=== PATIENT | male | born 1990 | race Caucasian/White ===

== ENCOUNTER 2024-08-24 15:30 | Inpatient (IN) ==
--- NOTE | 2024-08-24 16:02 | Emergency Department Note ---
Impression & Plan Acute pancreatitis, Sinus tachycardia ED Provider Note HISTORY OF PRESENT ILLNESS: Patient is a 34-year-old male presenting with abdominal pain. Patient reports that starting 48 hours ago he developed pain in his upper abdomen. He states he had a low-grade fever up to 100 Fahrenheit yesterday. He states nausea and a few episodes of vomiting. He denies any history of abdominal surgeries. He states that the pain as a crampy pressure sensation of the anterior abdomen, but also has pain radiating into his back which is sharp in etiology. Denies any dysuria or hematuria. Denies any chest pain or shortness of breath. He does report that his heart rate seems very elevated and he feels slightly lightheaded today. He states that he has had abdominal pain and tachycardic episodes like this in the past, but they normally only last a few hours and then resolve on their own. He states that he thought his symptoms would improve after going to bed last night, but he woke up today with persistent symptoms. He denies any diarrhea. ROS: as above PHYSICAL EXAM: Constitutional: Patient appears in no acute distress. HENT: Head: Normocephalic and atraumatic. Eyes: EOMI, PERRL Mouth/Throat: Mucous membranes moist. Neck: Trachea midline. Neck supple. Cardiovascular: Tachycardic with regular rhythm. No murmurs, rubs or gallops. Intact distal pulses. Pulmonary/Chest: No respiratory distress. Breath sounds clear and equal bilaterally. No wheezes or rales. No chest wall tenderness to palpation. Abdominal: Abdomen soft, no rebound or guarding. RUQ TTP. Epigastric TTP Musculoskeletal: No edema, tenderness or deformity noted. Skin: Warm and dry. No rash, erythema, pallor or cyanosis Psychiatric: Appropriate mood and affect for situation. Neurological: Alert and keenly responsive. CN II-XII grossly intact, moving all extremities equally and fully. MDM: - Vitals signs showed hypertension and tachycardia - History obtained via patient. History as above. - Chronic conditions affecting care: HTN; HLD; GERD - Differential diagnoses include, but are not limited to: Biliary colic; cholangitis; cholecystitis; hepatitis; right lower lobe pneumonia; pulmonary embolism; pyelonephritis; pancreatitis; ACS - Order placed for continuous cardiac monitoring. At this time, monitor showed rate of 127 bpm with normal sinus rhythm, per my interpretation. - External medical records reviewed. Wellness visit note dated 03/04/2024 was reviewed. Patient was seen in clinic for health maintenance examination. He was ordered refills of lisinopril and omeprazole. - EKG image interpreted by myself showed normal sinus rhythm. Rate tachycardic 112 bpm. QT 302. No acute ischemic changes. - Laboratory workup interpreted by myself showed leukocytosis (WBC 16.65) with neutrophil predominance; normal PT/INR; slight hyponatremia (Na 133); elevated total bilirubin (1.2); normal AST/ALT; normal lipase; normal troponin; hyperglycemia (glucose 277) with normal anion gap; normal procalcitonin - Patient given 1L NS with minimal improvement in his heart rate only to 116. - CT abdomen/pelvis with IV contrast acute proximal pancreatitis. Noted to have large fatty liver and splenomegaly - Given 1g IV tylenol for pain control. - Patient given a second 1L NS in ER. - Despite 2L of flui, patient's HR remained >110 bpm. Will admit to hospitalist service for further hydration and pain management. - Discussion was had with community case manager about patient's case and need for admission - Hospitalist consulted for admission - Patient admitted to [facility] hospitalist service for further evaluation and management. ASSESSMENT AND PLAN: Diagnosis: Acute pancreatitis; sinus tachycardia Plan: Admit Past Med/Surg History Problem List (Updated 08/24/24 @ 19:12 by Jia Mead MD) Sinus tachycardia (Acute) Acute pancreatitis (Acute) Dyslipidemia Hypertriglyceridemia GERD (gastroesophageal reflux disease) Hypertension Obstructive sleep apnea Surgical History (Updated 03/29/24 @ 08:56 by Annemarie Tate) No pertinent past surgical history Family History (System 03/29/24 @ 08:56 by Annemarie Tate) Uncle Colorectal cancer Grandmother (Maternal) Pancreatic cancer Grandmother (Paternal) Athyroidism (acquired) Denies family history of Ovarian cancer Prostate cancer Myocardial infarction Breast cancer Social History (System 03/29/24 @ 08:56 by Annemarie Tate) Smoking Status: Current every day smoker Tobacco Type: E-cigarettes / Vaping Age Started Using Tobacco: 25; packs per day: 1; Second Hand Exposure: Yes; Do You Dip or Chew Tobacco: No; Hx Alcohol Use: Yes Alcohol type: beer Alcohol Intake Frequency: 2-4 x/Month Hx Substance Use: No Preferred Language: Uzbek marital status: Single Current Living Situation: Family Current Living Situation Comment: lives with grandparents current occupational status: unemployed How many Children do You have: 0 Feels Safe at Home: Yes Childhood Exposure to Second-Hand Smoke: No Diet: regular Dental Care, Regularly: No Physical Activity Frequency: Does not Exercise Seatbelt Use: always Sunscreen Use: No Allergies Allergies Allergy/AdvReac Type Severity Reaction Status Date / Time No Known Drug Allergies Allergy Verified 03/29/24 08:56 [id number] Allergy Unknown Uncoded 03/29/24 08:56 N Allergy Unknown Uncoded 03/29/24 08:56 Home Meds Previous Rx's Medication Instructions Recorded omeprazole 40 mg capsule,delayed 40 mg PO DAILY #90 caps 03/04/24 release triamcinolone acetonide 0.025 % 1 applic topical BID #15 grams 03/04/24 topical ointment lisinopril 20 mg tablet 20 mg PO DAILY #90 tabs 06/04/24 fenofibrate nanocrystallized 145 145 mg PO DAILY #90 tabs 06/19/24 mg tablet Results & Data (ED) Vital Signs Vital Signs - 24 hr 08/24/24 15:35 08/24/24 15:54 08/24/24 15:54 Temperature 37.3 C Temperature Source Oral Pulse Rate 131 H 135 H Pulse Rate [Left] 130 H Pulse Rhythm Regular Pulse Rhythm [Left] Regular Pulse Strength [Left] Normal Respiratory Rate 20 21 20 Respiratory Effort / Characteristics Non-Labored Non-Labored Respiratory Depth Normal Normal Blood Pressure 162/84 H Blood Pressure [Right Arm] 148/100 H Blood Pressure Mean 110 Blood Pressure Mean [Right Arm] 116 Blood Pressure Position [Right Arm] Lying Pulse Oximetry 99 98 98 Oxygen Delivery Method Room Air Room Air Room Air Sepsis Recent Fever Within 48 Hours No Sepsis New/Unexplained Change in Mental Status No Sepsis Action Taken by Nursing No Action Required 08/24/24 16:58 08/24/24 17:38 Temperature Temperature Source Pulse Rate 116 H Pulse Rate [Left] 117 H Pulse Rhythm Pulse Rhythm [Left] Pulse Strength [Left] Respiratory Rate 18 Respiratory Effort / Characteristics Non-Labored Spontaneous Respiratory Depth Normal Blood Pressure Blood Pressure [Right Arm] 141/91 H Blood Pressure Mean Blood Pressure Mean [Right Arm] 107 Blood Pressure Position [Right Arm] Lying Pulse Oximetry 98 Oxygen Delivery Method Room Air Sepsis Recent Fever Within 48 Hours Sepsis New/Unexplained Change in Mental Status Sepsis Action Taken by Nursing Laboratory Data 08/24/24 16:12 08/24/24 16:12 Lab Results 08/24/24 Range/Units 16:12 WBC 16.65 H (4.8-10.8) K/ul RBC 4.70 (4.70-6.10) M/uL Hgb 14.3 (14.0-18.0) g/dl Hct 39.2 L (42.0-52.0) % MCV 83.4 (80.0-100.0) fL MCH 30.4 (25.0-34.0) pg MCHC 36.5 H (32.0-36.0) g/dL RDW Std Deviation 36.7 (36.4-46.3) fL RDW Coeff of Azar 12.2 (11.5-14.5) % Plt Count 204 (130-400) K/uL MPV 11.2 (9.4-12.4) fL Immature Gran % (Auto) 0.8 % Neut % (Auto) 80.8 % Lymph % (Auto) 9.4 % Blair % (Auto) 7.7 % Eos % (Auto) 0.9 % Baso % (Auto) 0.4 % Neut # (Auto) 13.45 H (1.40-6.50) K/uL Lymph # (Auto) 1.56 (1.20-3.40) K/uL Blair # (Auto) 1.28 H (0.11-0.59) K/uL Eos # (Auto) 0.15 (0.00-0.50) K/uL Baso # (Auto) 0.07 (0.00-0.20) K/uL Immature Gran # (Auto) 0.14 (0.01-0.20) K/uL Platelet Estimate Normal (Normal) RBC Morphology Unremarkable PT 10.7 (9.0-12.0) Seconds INR 1.0 (0.9-1.1) Sodium 133 L (136-145) mmol/L Potassium 3.8 (3.5-5.1) mmol/L Chloride 99 (98-107) mmol/L Carbon Dioxide 25 (21-32) mmol/L Anion Gap 9 (3-11) BUN 9 (6-23) mg/dl Creatinine 0.93 (0.6-1.4) mg/dl Est Cr Clr Drug Dosing 167.4 ml/min eGFR 110.50 BUN/Creatinine Ratio 9.7 L (10-20) Glucose 277 H (70-99(Fasting)) mg/dl Lactate 1.9 (0.4-2.0) mmol/L Calcium 9.4 (8.6-10.3) mg/dl Total Bilirubin 1.2 H (0.2-1.0) mg/dl AST 19 (13-39) U/L ALT 52 (7-52) U/L Alkaline Phosphatase 50 (34-104) U/L Troponin I High Sens 5.9 (0-20) pg/ml Total Protein 7.7 (6.0-8.3) gm/dl Albumin 4.6 (3.4-5.0) gm/dl Globulin 3.1 (2.5-4.0) gm/dl Albumin/Globulin Ratio 1.5 (0.9-2) Lipase 61 (11-82) U/L Procalcitonin 0.12 (0-0.5) ng/ml Administered Medications Discontinued Medications Sodium Chloride (Nss) 1,000 mls @ 999 mls/hr IV .Q1H1M ONE Stop: 08/24/24 16:38 Last Infusion: 08/24/24 17:46 Dose: Infused Documented By: Admin: 08/24/24 16:34 Dose: 999 mls/hr Documented By: ANTONY Sodium Chloride (Nss) 1,000 mls @ 999 mls/hr IV .Q1H1M ONE Stop: 08/24/24 18:28 Last Admin: 08/24/24 18:35 Dose: 999 mls/hr Documented By: ANTONY Acetaminophen (Ofirmev) 1,000 mg in 100 mls @ 400 mls/hr IV NOW STA Stop: 08/24/24 17:54 Last Infusion: 08/24/24 18:32 Dose: Infused Documented By: Admin: 08/24/24 18:02 Dose: 400 mls/hr Documented By: ANTONY Ioversol (Optiray 320 125ml) 118 ml IV ONCE ONE Stop: 08/24/24 17:30 Last Admin: 08/24/24 17:29 Dose: 118 ml Documented By: GES Imaging Data Radiologist's Impression: Abdomen/Pelvis CT 08/24/24 15:38 EXAM: CT Abdomen and Pelvis With Intravenous Contrast INDICATION: Abdominal pain TECHNIQUE: Axial computed tomography images of the abdomen and pelvis with intravenous contrast. Sagittal and coronal reformatted images were created and reviewed. This CT exam was performed using one or more of the following dose reduction techniques: automated exposure control, adjustment of the mA and/or kV according to patient size, and/or use of iterative reconstruction technique. CONTRAST: 118ml of Optiray 320 was administered intravenously. COMPARISON: No relevant prior studies available. FINDINGS: Limitations: None. Lung bases: No abnormality noted. Pleural space: No visualized pleural effusion or pneumothorax. Heart: No abnormality noted. Mediastinum: No abnormality noted. ABDOMEN: Liver: The liver is enlarged measuring 31.0 cm long. Hypodensity noted typical of fatty replacement. Smooth cortical contour. No mass or ductal dilation. Gallbladder and bile ducts: The gallbladder is collapsed. No calcified stones noted. Pancreas: There is mild to moderate inflammation of the proximal pancreas. There is homogeneous pancreatic enhancement. No ductal dilatation. No surrounding fluid or gas. Spleen: The spleen is enlarged to 17.5 cm long. Adrenals: No significant abnormality noted. Kidneys and ureters: 2 mm nonobstructing right kidney stone. The kidneys otherwise appear normal. Stomach and bowel: No distension or mucosal thickening. No inflammation noted. PELVIS: Appendix: No findings to suggest acute appendicitis. Bladder: No filling defects to suggest mass or large stone. No inflammation. Reproductive: No abnormalities noted. ABDOMEN and PELVIS: Intraperitoneal space: No free air. No significant fluid collection. Bones/joints: No acute changes. Soft tissues: No significant abnormality noted. Vasculature: No abdominal aortic aneurysm. Lymph nodes: No pathologically enlarged lymph nodes. IMPRESSION: 1. Acute proximal pancreatitis. 2. 2 mm nonobstructing right kidney stone. 3. Large fatty liver and splenomegaly. ACT 112: Positive. There are findings on this exam that require communication between the performing entity and the patient following Patient Test Result Information Act ([place] ACT 112) guidelines. Electronically signed by Itzel Joel 08-24-2024 7:02 PM Discharge Plan Visit Data Chief Complaint: Abdominal Pain Stated Complaint: ABD PAIN,FEVER,HTN,TACHYCARDI ED Provider: Jia Mead Discharge Problem: Acute pancreatitis, Sinus tachycardia Forms Stand Alone Forms: [employer] [facility] Prescriptions Prescriptions: No Action lisinopril 20 mg tablet 20 mg PO DAILY Qty: 90 3RF fenofibrate nanocrystallized 145 mg tablet 145 mg PO DAILY Qty: 90 3RF omeprazole 40 mg capsule,delayed release(DR/EC) 40 mg PO DAILY Qty: 90 3RF triamcinolone acetonide 0.025 % ointment 1 applic topical BID Qty: 15 1RF Referrals Referrals: Hernan De La Cruz DO [Primary Care Provider] -
[2024-08-24] MEDS: SODIUM CHLORIDE 0.9% 1,000 ML IV ONE ×2 (16:34→18:35)
[2024-08-24 17:10] LABS: Alanine Aminotransferase 52 U/L (7-52); Albumin Globulin Ratio 1.5 (0.9-2); Albumin Level 4.6 gm/dl (3.4-5.0); Alkaline Phosphatase 50 U/L (34-104); Anion Gap 9 (3-11); Aspartate Aminotransferase 19 U/L (13-39); BUN Creatinine Ratio 9.7 (10-20); Bilirubin,Total 1.2 mg/dl (0.2-1.0); Blood Urea Nitrogen 9 mg/dl (6-23); Calcium 9.4 mg/dl (8.6-10.3); Carbon Dioxide 25 mmol/L (21-32); Chloride 99 mmol/L (98-107); Creatinine Clr Calc Pharmacy 167.4 ml/min; Globulin 3.1 gm/dl (2.5-4.0); Glucose 277 mg/dl (70-99(Fasting)); Lipase 61 U/L (11-82); Potassium 3.8 mmol/L (3.5-5.1); Sodium 133 mmol/L (136-145); Total Protein 7.7 gm/dl (6.0-8.3)
[2024-08-24 17:17] LABS: Prothrombin Time 10.7 Seconds (9.0-12.0); Troponin I High Sensitivity 5.9 pg/ml (0-20)
[2024-08-24 17:22] LABS: Basophils # (auto) 0.07 K/uL (0.00-0.20); Basophils % (auto) 0.4 %; Eosinophils # (auto) 0.15 K/uL (0.00-0.50); Eosinophils % (auto) 0.9 %; Hematocrit (blood only) 39.2 % (42.0-52.0); Hemoglobin 14.3 g/dl (14.0-18.0); Immature Granulocytes # (auto) 0.14 K/uL (0.01-0.20); Immature Granulocytes % (auto) 0.8 %; Lymphocytes # (auto) 1.56 K/uL (1.20-3.40); Lymphocytes % (auto) 9.4 %; Mean Corpuscular Hemoglobin 30.4 pg (25.0-34.0); Mean Corpuscular Hgb Conc 36.5 g/dL (32.0-36.0); Mean Corpuscular Volume 83.4 fL (80.0-100.0); Mean Platelet Volume 11.2 fL (9.4-12.4); Monocytes # (auto) 1.28 K/uL (0.11-0.59); Monocytes % (auto) 7.7 %; Neutrophils # (auto) 13.45 K/uL (1.40-6.50); Neutrophils % (auto) 80.8 %; Platelet Count 204 K/uL (130-400); Platelet Estimate Normal (Normal); RBC Morphology Unremarkable; RDW Coefficient of Variation 12.2 % (11.5-14.5); RDW Standard Deviation 36.7 fL (36.4-46.3); White Blood Count 16.65 K/ul (4.8-10.8)
[2024-08-24] MEDS: OPTIRAY 320 125ml IV ONE (17:29)
[2024-08-24] MEDS: ACETAMINOPHEN 1,000 MG/100 ML VIAL IV STA (18:02)
--- NOTE | 2024-08-24 19:03 | CT Scan Report ---
EXAM: CT Abdomen and Pelvis With Intravenous Contrast INDICATION: Abdominal pain TECHNIQUE: Axial computed tomography images of the abdomen and pelvis with intravenous contrast. Sagittal and coronal reformatted images were created and reviewed. This CT exam was performed using one or more of the following dose reduction techniques: automated exposure control, adjustment of the mA and/or kV according to patient size, and/or use of iterative reconstruction technique. CONTRAST: 118ml of Optiray 320 was administered intravenously. COMPARISON: No relevant prior studies available. FINDINGS: Limitations: None. Lung bases: No abnormality noted. Pleural space: No visualized pleural effusion or pneumothorax. Heart: No abnormality noted. Mediastinum: No abnormality noted. ABDOMEN: Liver: The liver is enlarged measuring 31.0 cm long. Hypodensity noted typical of fatty replacement. Smooth cortical contour. No mass or ductal dilation. Gallbladder and bile ducts: The gallbladder is collapsed. No calcified stones noted. Pancreas: There is mild to moderate inflammation of the proximal pancreas. There is homogeneous pancreatic enhancement. No ductal dilatation. No surrounding fluid or gas. Spleen: The spleen is enlarged to 17.5 cm long. Adrenals: No significant abnormality noted. Kidneys and ureters: 2 mm nonobstructing right kidney stone. The kidneys otherwise appear normal. Stomach and bowel: No distension or mucosal thickening. No inflammation noted. PELVIS: Appendix: No findings to suggest acute appendicitis. Bladder: No filling defects to suggest mass or large stone. No inflammation. Reproductive: No abnormalities noted. ABDOMEN and PELVIS: Intraperitoneal space: No free air. No significant fluid collection. Bones/joints: No acute changes. Soft tissues: No significant abnormality noted. Vasculature: No abdominal aortic aneurysm. Lymph nodes: No pathologically enlarged lymph nodes. IMPRESSION: 1. Acute proximal pancreatitis. 2. 2 mm nonobstructing right kidney stone. 3. Large fatty liver and splenomegaly. ACT 112: Positive. There are findings on this exam that require communication between the performing entity and the patient following Patient Test Result Information Act ([place] ACT 112) guidelines. Electronically signed by Itzel Joel 08-24-2024 7:02 PM
--- NOTE | 2024-08-24 19:51 | History & Physical Report ---
Date of Service August 24, 2024 Assessment & Plan (1) Acute pancreatitis: (2) Alcohol abuse: (3) GERD (gastroesophageal reflux disease): (4) Hypertension: (5) Obstructive sleep apnea: (6) Dyslipidemia: Plan This is a 34 y/o M with PMHx of SANJAY (on CPAP), SANJAY, HTN, HLD, Prediabetes, and alcohol abuse who was admitted due to acute pancreatitis. Acute pancreatitis - Epigastric pain with radiation to back exacerbated by meals; has not had PO intake in 2 days due to this - Likely alcohol induced - Will check triglyceride level as well - NPO but as soon as patient is able to tolerate PO, can switch to oral diet - Pain control with scheduled tylenol and dilaudid 0.25 mg IV for moderate pain and dilaudid 0.5 mg IV for severe pain - LR @ 125 ml/hr ordered Alcohol abuse - States he drinks "a couple times" during the week, and alternates between a 6- pack of beer or half a bottle or a whole bottle of vodka - Last drink was 4 days ago; denies hx of withdrawal - Feels he needs to decrease her EtOH intake, especially given current presentation - AWSS protocol ordered - Discussed importance of decreasing alcohol intake Prediabetes - Hgb A1c from 06/2024 was 6.3% - Bsg at time of admission was 277 - Not currently on home medications - Bsg checks achs and SSI HTN - Hold home Lisinopril for now SANJAY - Continue CPAP HLD - Continue home Fenofibrate GERD - Continue PPI Dispo: PCU/Tele Fluids: LR @200 ml/hr Diet: NPO; will resume diet as soon as patient is able to tolerate PO Pain Control: Tylenol q8 IV (can switch to PO if able to tolerate), Dilaudid 0.25 mg for moderate pain (4-6) and Dilaudid 0.5 mg for severe pain (7-10) VTE ppx: Lovenox GI ppx: Pantoprazole Code Status: FULL History of Present Illness Chief Complaint: Abdominal Pain Primary Care Provider: Hernan De La Cruz, Patient is a 34-year-old male with past medical history of hypertension, GERD, hyperlipidemia, SANJAY (on CPAP), prediabetes, and alcohol abuse who comes to the emergency department due to 2 days of persistent abdominal pain. Patient describes pain as intense burning in his epigastric region with radiation to his back, exacerbated by meals, persistent/constant. Associated symptoms include nausea, and states that he had a fever at home (Tmax of 101) and 1 episode of night sweats. Denies having any other associated symptoms such as chest pain, shortness of breath, dyspnea on exertion, palpitations, tachycardia, diarrhea or vomiting, weakness, lightheadedness/dizziness, or any other systemic symptoms. When pain began 2 days ago, since patient noticed that this was exacerbated by oral intake, he has had little to eat if anything and these last 2 days. He has not had a previous episode of pancreatitis, however, he states that he has been having intermittent abdominal pain for a few weeks that resolved spontaneously, but he grew concerned when his abdominal pain that began 2 days ago was not resolving like in previous times. Patient states that he consumes alcoholic beverages " a few times a week" and that he alternates between a sixpack of beer and half or a whole bottle of vodka. The last drink he had was 4 days ago and he denies having any history of withdrawal, but knows that he needs to decrease his intake. He lives in [place] with his grandmother. Labs/Imaging: Leukocytosis of 16 with neutrophilic predominance, hemoglobin of 14.3, platelets of 204. Lactate of 1.9. CMP with mild hyponatremia of 133, creatinine of 0.93 and BUN of 9, blood sugar of 277 (hemoglobin A1c from 06/2024 was 6.3). LFTs unremarkable. Lipase of 61. Pro-Liborio of 0.12. CTAP showing hepatomegaly (length of 31 cm) with changes consistent with fatty liver, splenomegaly (length of 17.5 cm), and changes consistent with acute proximal pancreatitis; no gallstones or biliary duct dilation noted. Medical History: [Reviewed] Medications: [Reviewed] Surgical History: [Reviewed] Family history: [Reviewed] Allergies: [Reviewed] Social History: [Reviewed] Code Status: FULL Allergies Allergy/AdvReac Type Severity Reaction Status Date / Time No Known Allergies Allergy Verified 08/24/24 21:20 Home Medications Medication Instructions Recorded Confirmed Type omeprazole 40 mg capsule,delayed 40 mg PO DAILY #90 caps 03/04/24 08/24/24 Rx release triamcinolone acetonide 0.025 % 1 applic topical BID #15 grams 03/04/24 08/24/24 Rx topical ointment lisinopril 20 mg tablet 20 mg PO DAILY #90 tabs 06/04/24 08/24/24 Rx fenofibrate nanocrystallized 145 145 mg PO DAILY #90 tabs 06/19/24 08/24/24 Rx mg tablet Past Med/Surg History Problem List (Updated 08/24/24 @ 19:12 by Jia Mead MD) Alcohol abuse Sinus tachycardia (Acute) Acute pancreatitis (Acute) Dyslipidemia Hypertriglyceridemia GERD (gastroesophageal reflux disease) Hypertension Obstructive sleep apnea Surgical History (Updated 03/29/24 @ 08:56 by Annemarie Tate) No pertinent past surgical history Family History (System 03/29/24 @ 08:56 by Annemarie Tate) Uncle Colorectal cancer Grandmother (Maternal) Pancreatic cancer Grandmother (Paternal) Athyroidism (acquired) Denies family history of Ovarian cancer Prostate cancer Myocardial infarction Breast cancer Social History (System 03/29/24 @ 08:56 by Annemarie Tate) Smoking Status: Current every day smoker Tobacco Type: E-cigarettes / Vaping Age Started Using Tobacco: 25; packs per day: 1; Second Hand Exposure: Yes; Do You Dip or Chew Tobacco: No; Hx Alcohol Use: Yes Alcohol type: beer and hard liquor Alcohol Intake Frequency: 2-4 x/Month Hx Substance Use: No Preferred Language: Solomon Islander Communication Ability: Effective Welder Required: No Beliefs That Will Affect Care: None marital status: Single Current Living Situation: Family Current Living Situation Comment: lives with grandparents current occupational status: unemployed How many Children do You have: 0 Feels Safe at Home: Yes Safety Concerns: Feels Safe At This Time Childhood Exposure to Second-Hand Smoke: No Diet: regular Dental Care, Regularly: No Physical Activity Frequency: Does not Exercise Seatbelt Use: always Sunscreen Use: No Assistive Devices: Contacts and CPAP Review of Systems Review of Systems: As per HPI Physical Exam Physical Exam: GENERAL: AAO x4, afebrile, calm, NAD HEAD: AT, NC EYES: EOM intact, TALON CHEST: symmetric chest expansions w/ respirations CARDIO: RRR, no r/m/g PULMONARY: CTA b/l, normal respiratory effort, no respiratory distress GI: soft, nondistended, mild-moderate tenderness with palpation of RUQ and epigastric region EXTREMITIES: no swelling or calf tenderness in b/l LE Results & Data Results & Data Vital Signs (Past 12 Hours) Vital Signs Temp Pulse Pulse Resp BP BP Pulse Ox 08/24/24 17:38 117 H 18 141/91 H 98 08/24/24 16:58 116 H 08/24/24 15:54 135 H 20 98 08/24/24 15:54 130 H 21 148/100 H 98 08/24/24 15:35 37.3 C 131 H 20 162/84 H 99 O2 Del Method 08/24/24 17:38 Room Air 08/24/24 16:58 08/24/24 15:54 Room Air 08/24/24 15:54 Room Air 08/24/24 15:35 Room Air Supervising Physician Co-Signing Physician Notes Patient seen and examined, chart reviewed, case discussed with Dr. Carmen. In brief, patient is a 34-year-old male with history of GERD, hypertension, obstructive sleep apnea, hypertriglyceridemia and alcohol abuse presenting with 2 days of severe epigastric discomfort with radiation to his back. Decreased oral intake. Patient found to have acute pancreatitis. No history of prior pancreatitis. No history of gallstones. Patient does endorse drinking alcohol fairly regularly1-2 times per week. On each occasion he drinks approximately 1 sixpack of beer or 1/5 of vodka. Patient with history of hypertriglyceridemia for which he takes Fenofibrate 145mg po daily On physical exam patient is resting comfortably, in moderate pain in the epigastric area with radiation through to the back Persistently tachycardic, sinus, heart rate = 122 Moist mucous membranes, neck supple + S1, S2, regular, no murmur/rub/gallops Lungs CTA anteriorly Positive bowel sounds, soft, epigastric tenderness with some voluntary guarding Labs and images reviewed. Patient with leukocytosis WBC = 16.65 with neutrophil predominance Glucose = 277 Total bilirubin = 1.2 Triglycerides = 1149 CT of the abdomen with acute proximal pancreatitis as well as a 2 mm nonobstructing right kidney stone. Assessment/[id number] male with history of GERD, hypertension, obstructive sleep apnea, hypertriglyceridemia and alcohol abuse presenting with acute pancreatitis. No history of prior. No gallstones. Elevated triglyceride level = 1149. #Hypertriglyceridemia induced acute pancreatitis Admit to PCU Initiate insulin drip per hypertriglyceridemia protocol - Monitor BSG levels q hourly). - lactated Ringer's at 200 mL/h when blood sugar = 150-200 will change fluids to dextrose containing at rate of 200/h Monitor triglyceride level every 12 hours Continue insulin drip until triglyceride level less than 500 ideally -Continue home Fenofibrate -Pain control, anti-emetics as needed -Will hold home Lisinopril for now #GERD -Protonix #EtOH use -AWSS protocol with Ativan as needed -Patient would benefit from EtOH cessation. With fatty liver present on imaging #SANJAY -CPAP qHS Remainder as above Resident Activity Tracking Resident Involvement: Resident Care Provided Care Provided: Adult Hospital Medicine
[2024-08-24 20:05] LABS: Appearance Urine Clear (Clear); Bacteria Urine Automated None Seen (None Seen); Bilirubin Urine Negative (Negative); Blood Urine Negative (Negative); Cast Urine Automated 0-2 /lpf (0-2); Color Urine Yellow; Epithelial Cell Urine Auto 0-2 /hpf (0-2); Glucose Urine UA 3+ (Negative); Ketones Urine Trace (Negative); Leukocyte Esterase Urine Negative (Negative); Nitrite Urine Negative (Negative); Protein Urine 2+ (Negative); RBC Urine Automated 0-2 /hpf (0-2); Specific Gravity Urine > 1.045 (1.000-1.030); Urobilinogen Urine Negative (Negative); WBC Urine Automated 0-5 /hpf (0-5)
[2024-08-24] MEDS ORDERED: Ativan IV Alcohol Withdrawal--Active Protocol IV PRN (21:08)
[2024-08-24] MEDS ORDERED: DEXTROSE 50% 50 ML SYRINGE IV PRN ×2 (21:08→22:45)
[2024-08-24] MEDS ORDERED: LORazepam 2 MG/1 ML VIAL IV PRN ×3 (21:08)
[2024-08-24] MEDS ORDERED: CARBOHYDRATES FOR HYPOGLYCEMIA PO PRN (21:08)
[2024-08-24] MEDS ORDERED: GLUCOSE 40% GEL 15 GM TUBE PO PRN (21:08)
[2024-08-24] MEDS ORDERED: POLYETHYLENE (MIRALAX) 17 GM PACK PO PRN (21:08)
[2024-08-24] MEDS ORDERED: GLUCOSE 10 TAB/TUBE PO PRN (21:08)
[2024-08-24] MEDS ORDERED: MELATONIN 3 MG TAB PO PRN (21:08)
[2024-08-24] MEDS ORDERED: HYDROmorphone INJ 0.5 MG/0.5 ML SYR IV PRN (21:08)
[2024-08-24] MEDS ORDERED: GLUCAGON FOR INJ 1 MG VIAL SQ PRN (21:08)
[2024-08-24] MEDS: SODIUM CHLORIDE 0.9% 1,000 ML IV SCH (21:10)
[2024-08-24 21:22] LABS: Chol HDL Ratio 7.7 (0-5); Cholesterol 215 mg/dl (0-200); HDL Cholesterol 28 mg/dl; Triglycerides 1149 mg/dl (0-150)
[2024-08-24] MEDS: INSULIN ASPART PER UNIT CHARGE SC SCH (21:33)
[2024-08-24] MEDS: LACTATED RINGER'S 1,000 ML IV SCH (21:33)
[2024-08-24] MEDS: HYDROmorphone INJ 0.5 MG/0.5 ML SYR IV PRN (21:44)
[2024-08-24] MEDS: ONDANSETRON INJ 2 MG/ML 2 ML VIAL IV PRN (21:45)
[2024-08-24] MEDS ORDERED: INSULIN PROTOCOL GOAL RANGE ONE (22:23)
[2024-08-24] MEDS ORDERED: STAT IV Infusion **Titration per Protocol STA (22:23)
[2024-08-24] MEDS ORDERED: INSULIN REGULAR 250 UNITS in SODIUM CHLORIDE 0.9% 247.5 ML IV SCH (22:30)
--- NOTE | 2024-08-24 22:47 | Billing Data ---
Date of Service August 24, 2024 Coding Level of Care Code 37114 INT INP/OBS CARE
[2024-08-24 22:57] LABS: Influenza A virus by PCR Negative (Neg); Influenza B virus by PCR Negative (Neg); RSV by PCR Negative (Neg); SARS CoV2 RNA(COVID-19) Ceph NEGATIVE (Negative)
[2024-08-24] MEDS: POTASSIUM CHLORIDE 10 MEQ TABCR PO STA (23:06)
[2024-08-24] MEDS: INSULIN REGULAR 250 UNITS in SODIUM CHLORIDE 0.9% 247.5 ML IV SCH (23:25)
[2024-08-24] MEDS: KETOROLAC TROMETHAMINE 15 MG/ML VIAL IV ONE (23:33)
[2024-08-24] MEDS: D5W AND 1/2NSS 1,000 ML IV SCH (23:33)
[2024-08-25] MEDS: ACETAMINOPHEN 1,000 MG/100 ML VIAL IV SCH (01:45)
[2024-08-25] MEDS: SODI CHLOR 2.5MEQ/ML 14.6% 77 MEQ in DEXTROSE 10% 1,000 ML IV SCH (05:53)
[2024-08-25 06:25] LABS: Albumin Globulin Ratio 1.2 (0.9-2); Albumin Level 3.6 gm/dl (3.4-5.0); BUN Creatinine Ratio 10.2 (10-20); Bilirubin,Total 0.9 mg/dl (0.2-1.0); Calcium 8.7 mg/dl (8.6-10.3); Creatinine Clr Calc Pharmacy 145.5 ml/min; Globulin 2.9 gm/dl (2.5-4.0); Potassium 3.8 mmol/L (3.5-5.1); Total Protein 6.5 gm/dl (6.0-8.3)
[2024-08-25 06:33] LABS: Basophils # (auto) 0.05 K/uL (0.00-0.20); Basophils % (auto) 0.5 %; Eosinophils # (auto) 0.21 K/uL (0.00-0.50); Hemoglobin 11.7 g/dl (14.0-18.0); Immature Granulocytes # (auto) 0.07 K/uL (0.01-0.20); Immature Granulocytes % (auto) 0.7 %; Lymphocytes % (auto) 19.4 %; Mean Corpuscular Hemoglobin 30.3 pg (25.0-34.0); Mean Corpuscular Hgb Conc 34.4 g/dL (32.0-36.0); Mean Corpuscular Volume 88.1 fL (80.0-100.0); Mean Platelet Volume 11.2 fL (9.4-12.4); Monocytes # (auto) 0.84 K/uL (0.11-0.59); Monocytes % (auto) 8.1 %; Neutrophils # (auto) 7.16 K/uL (1.40-6.50); Neutrophils % (auto) 69.3 %; Platelet Count 161 K/uL (130-400); RDW Coefficient of Variation 12.7 % (11.5-14.5); RDW Standard Deviation 40.1 fL (36.4-46.3); Red Blood Count 3.86 M/uL (4.70-6.10); White Blood Count 10.33 K/ul (4.8-10.8)
[2024-08-25] MEDS ORDERED: INSULIN ASPART PER UNIT CHARGE SC SCH (07:30)
--- NOTE | 2024-08-25 07:32 | Hospitalist Progress Note ---
Date of Service August 25, 2024 Assessment & Plan (1) Acute pancreatitis: (2) Alcohol abuse: (3) GERD (gastroesophageal reflux disease): (4) Hypertension: (5) Obstructive sleep apnea: (6) Dyslipidemia: Plan This is a 34 y/o M with PMHx of SANJAY (on CPAP), SANJAY, HTN, HLD, Prediabetes, and alcohol abuse who was admitted due to acute pancreatitis. Acute pancreatitis - combination of alcohol and hypertriglyceridemia - Epigastric pain with radiation to back exacerbated by meals; has not had PO intake in 2 days due to this - cont insulin gtt per hypertriglyceridemia protocol (cont until TG < 500), 1149 on admission, currently trending down, currently: 719 - monitor BG hourly - cont D5 05/16 NS - started on clears today - cont home fenofibrate - Pain control with scheduled tylenol and dilaudid 0.25 mg IV for moderate pain and dilaudid 0.5 mg IV for severe pain Alcohol use disorder - States he drinks "a couple times" during the week, and alternates between a 6- pack of beer or half a bottle or a whole bottle of vodka - Last drink was 4 days ago; denies hx of withdrawal - Feels he needs to decrease her EtOH intake, especially given current presentation - AWSS protocol ordered - Discussed importance of decreasing alcohol intake Prediabetes - Hgb A1c from 06/2024 was 6.3% - Bsg at time of admission was 277 - Not currently on home medications - BG currently being monitored hourly as pt is on insulin gtt HTN - Hold home Lisinopril for now SANJAY - Continue CPAP HLD - Continue home Fenofibrate GERD - Continue PPI VTE ppx: Lovenox GI ppx: Pantoprazole Code Status: FULL Admission and Anticipated Discharge Date Admission Date: August 24, 2024 Subjective no acute events overnight Currently states he is feeling much better and his abdominal pain has resolved Review of Systems Review of Systems: Comprehensive ROS neg Physical Exam Physical Exam: Gen: NAD, in bed comfortable HEENT: NC/AT, anicteric, MMM CVS: s1s2nl, RRR Lungs: CTAB Abd: soft, NT, nl bowels sounds : no sanabria Ext: no edema Neuro: AAOx4 Psych: calm/cooperative Results & Data Results & Data Vital Signs (Past 12 Hours) Vital Signs Temp Pulse Pulse Resp BP BP Pulse Ox 08/25/24 07:20 94 H 08/25/24 03:03 36.8 C 96 H 18 133/79 98 08/25/24 00:29 08/24/24 21:45 112 H 08/24/24 21:08 116 H 08/24/24 21:00 37.1 C 122 H 20 153/89 H 98 08/24/24 20:34 152/101 H 08/24/24 20:34 152/101 H 08/24/24 20:34 152/101 H 08/24/24 20:21 111 H 22 97 08/24/24 20:00 108 H 21 08/24/24 20:00 134/83 08/24/24 19:30 105 H 18 139/87 99 O2 Del Method 08/25/24 07:20 08/25/24 03:03 Room Air 08/25/24 00:29 Room Air 08/24/24 21:45 08/24/24 21:08 08/24/24 21:00 Room Air 08/24/24 20:34 08/24/24 20:34 08/24/24 20:34 08/24/24 20:21 08/24/24 20:00 08/24/24 20:00 08/24/24 19:30 Room Air PG Care Time/CCT Total # of Minutes Spent Total Time Spent with Patient: Total time spent is greater than 50% in coordination of care (as documented) at patient's floor/unit and/or counseling patient: Coding Level of Care Code 14213 SUB INP/OBS CARE 2/35MIN Diagnoses Acute pancreatitis K85.90 Alcohol abuse F10.10 GERD (gastroesophageal reflux disease) K21.9 Hypertension I10 Obstructive sleep apnea G47.33 Dyslipidemia E78.5
[2024-08-25] MEDS: ENOXAPARIN INJ 40 MG/0.4 ML SYR SQ SCH (08:02)
[2024-08-25] MEDS: FENOFIBRATE NANOCRYSTALLIZED 145 MG TABLET PO SCH (08:03)
[2024-08-25] MEDS: THIAMINE HCL 100 MG TAB PO SCH (08:04)
[2024-08-25] MEDS: PANTOprazole 40 MG TAB PO SCH (08:04)
[2024-08-25] MEDS: FOLIC ACID 1 MG TAB PO SCH (08:04)
[2024-08-25] MEDS ORDERED: FENOFIBRATE NANOCRYSTALLIZED 145 MG TABLET PO SCH (09:00)
[2024-08-25] MEDS ORDERED: lisinopril 20 MG TAB PO SCH (09:00)
--- NOTE | 2024-08-25 09:31 | Electrocardiogram Report ---
Test Reason : Blood Pressure : */* mmHG Vent. Rate : 122 BPM Atrial Rate : 122 BPM P-R Int : 138 ms QRS Dur : 94 ms QT Int : 306 ms P-R-T Axes : 53 61 19 degrees QTcB Int : 436 ms Sinus tachycardia T wave abnormality, consider inferior ischemia Abnormal ECG No previous ECGs available Confirmed by Buck William ([id number]) on 08/25/2024 9:31:37 AM Referred By: REFERRED SELF Confirmed By: Buck William
[2024-08-25] MEDS: POTASSIUM CHLORIDE CRTAB 20 MEQ TABCR PO SCH (20:43)
[2024-08-26] MEDS ORDERED: ACETAMINOPHEN 500 MG TAB PO PRN (00:09)
[2024-08-26] MEDS: ACETAMINOPHEN 500 MG TAB PO SCH (00:29)
[2024-08-26 06:39] LABS: Basophils # (auto) 0.04 K/uL (0.00-0.20); Basophils % (auto) 0.5 %; Hematocrit (blood only) 33.4 % (42.0-52.0); Hemoglobin 11.1 g/dl (14.0-18.0); Immature Granulocytes # (auto) 0.05 K/uL (0.01-0.20); Immature Granulocytes % (auto) 0.7 %; Lymphocytes # (auto) 2.18 K/uL (1.20-3.40); Lymphocytes % (auto) 29.4 %; Mean Corpuscular Hemoglobin 29.6 pg (25.0-34.0); Mean Corpuscular Hgb Conc 33.2 g/dL (32.0-36.0); Mean Corpuscular Volume 89.1 fL (80.0-100.0); Mean Platelet Volume 11.3 fL (9.4-12.4); Monocytes # (auto) 0.56 K/uL (0.11-0.59); Monocytes % (auto) 7.5 %; Neutrophils # (auto) 4.29 K/uL (1.40-6.50); Neutrophils % (auto) 57.9 %; Platelet Count 168 K/uL (130-400); RDW Coefficient of Variation 12.4 % (11.5-14.5); RDW Standard Deviation 40.5 fL (36.4-46.3); Red Blood Count 3.75 M/uL (4.70-6.10); White Blood Count 7.42 K/ul (4.8-10.8)
--- NOTE | 2024-08-26 06:49 | Hospitalist Progress Note ---
Date of Service August 26, 2024 Assessment & Plan (1) Acute pancreatitis: (2) Alcohol abuse: (3) GERD (gastroesophageal reflux disease): (4) Hypertension: (5) Obstructive sleep apnea: (6) Dyslipidemia: Plan This is a 34 y/o M with PMHx of SANJAY (on CPAP), HTN, HLD, Prediabetes, and alcohol abuse who was admitted due to acute pancreatitis. #Acute pancreatitis - Etiology: Likely combination of alcohol and hypertriglyceridemia - Presented with Epigastric pain with radiation to back exacerbated by meals - Vitals: Stable - Labs : Lipase (08/23): 61 AST 27 ALT 36 ALK phosphatase 36 Total Bili:0.5 - Ct Abdomen and Pelvis reveals acute proximal pancreatitis; 2mm nonobstructing right kidney stone, large fatty liver and splenomegaly. Plan - cont insulin gtt per hypertriglyceridemia protocol (cont until TG < 500), 1149 on admission, currently trending down, Today: 644; will repeat TG at 4PM Today. If Triglyceride <500, will stop insulin drip and hopefully home tomorrow. - monitor BG hourly - cont D5 05/16 NS - started on clears yesterday. Continue clear diet - cont home fenofibrate dose of 145 mg daily. Can consider adding Gemfibrozil in the outpatient. - Pain control with scheduled Tylenol 1000mg Po q8hr #Alcohol use disorder - States he drinks "a couple times" during the week, and alternates between a 6- pack of beer or half a bottle or a whole bottle of vodka - Last drink was 4 days ago before coming to hospital - Denies hx of withdrawal -Vitals stable -Electrolytes WNL - Feels he needs to decrease her EtOH intake, especially given current presen tation Plan - IVF, Folate , Thiamine - AWSS protocol ordered - Discussed importance of decreasing alcohol intake #Prediabetes - Hgb A1c from 06/2024 was 6.3% - Bsg at time of admission was 277 - BG currently being monitored hourly as pt is on insulin gtt #HTN - Hold home Lisinopril for now. Will resume on discharge - BP: 127/89 #SANJAY - Continue CPAP #HLD - Continue home Fenofibrate, Can consider adding Gemfibrozil in the outpatient. GERD - Continue PPI VTE ppx: Lovenox GI ppx: Pantoprazole Code Status: FULL Admission and Anticipated Discharge Date Admission Date: August 24, 2024 Supervising Physician Co-Signing Physician Notes Attending attestation Pt seen and examined in concert with Dr. Alcaraz. In agreement with the documented findings as noted in the resident documentation with any exceptions or additions as noted here. Significant improvement in presenting epigastric pain for the last several hours. Reports ongoing preadmission dietary indiscretion including high amt of fast food, 'too much' alcohol use. Just got a new job and sick cat, so increased stress. Grandmother, who he lives with reports significant FHx of pancreatic disease and hypertriglyceridemia. Pressuring patient to leave AMA due to cost. On examination, S1/S2 nl RRR no MCG. CTAB. Abd NT/ND BS+ve Acute pancreatitis in the setting of hypertrilgyceridemia - extensive discussion with patient and grandmother re: goals of care and duration of stay. As symptoms have considerably improved, will aggressively taper insulin drip with close monitoring. Consider BID gemfibrozil on or following discharge based on response. Else see resident documentation as noted. Subjective Overnight events: slept well, no any overnight events Ongoing symptoms: Denies abdominal pain, nausea/vomiting New concerns: No any Review of Systems Review of Systems: As per HPI Physical Exam Constitutional: WD/WN, vitals as above well developed; no acute distress Eyes: PERRL, conjunctivae normal, anicteric sclerae ENMT: external ear and nose normal, oropharynx normal Ears: no hearing impairment Neck: trachea midline, no thyromegaly trachea midline Respiratory: normal respiratory effort, lungs clear to auscultation normal respiratory effort and + respiratory distress; no labored breathing and no retractions Auscultation: lungs clear to auscultation bilaterally Cardiovascular: RRR, no murmur, no edema Rate/Rhythm: regular rate and regular rhythm Chest (Breasts): normal inspection/palpation of breasts Chest: normal inspection of chest Results & Data Results & Data Vital Signs (Past 12 Hours) Vital Signs Temp Pulse Pulse Resp BP Pulse Ox O2 Del Method 08/26/24 04:33 36.8 C 82 18 127/89 99 CPAP 08/25/24 23:36 36.9 C 94 H 18 127/89 96 Room Air 08/25/24 21:48 Room Air, CPAP 08/25/24 21:37 96 H 08/25/24 19:10 37.0 C 95 H 18 130/80 98 Room Air
[2024-08-26 06:59] LABS: Albumin Globulin Ratio 1.2 (0.9-2); Albumin Level 3.5 gm/dl (3.4-5.0); BUN Creatinine Ratio 6.7 (10-20); Bilirubin,Total 0.5 mg/dl (0.2-1.0); Calcium 8.7 mg/dl (8.6-10.3); Creatinine Clr Calc Pharmacy 174.6 ml/min; Globulin 2.9 gm/dl (2.5-4.0); Magnesium 1.9 mg/dl (1.7-2.4); Phosphorus 3.8 mg/dl (2.5-4.9); Potassium 3.5 mmol/L (3.5-5.1); Total Protein 6.4 gm/dl (6.0-8.3)
[2024-08-26] MEDS: SODI CHLOR 2.5MEQ/ML 14.6% 77 MEQ, POTASSIUM CHLORIDE 20 MEQ in DEXTROSE 10% 1,000 ML IV SCH (10:54)
[2024-08-26] MEDS: SODI CHLOR IV SCH ×2 (10:55→11:48)
[2024-08-26] MEDS: DEXTROSE 10% IV SCH ×2 (10:55→11:48)
[2024-08-26] MEDS: POTASSIUM CHLORIDE IV SCH ×2 (10:55→11:48)
[2024-08-26] MEDS ORDERED: STAT IV Infusion **Titration per Protocol STA (11:16)
[2024-08-26] MEDS ORDERED: DEXTROSE 10% IV SCH (11:30)
[2024-08-26] MEDS ORDERED: INSULIN REGULAR 250 UNITS in SODIUM CHLORIDE 0.9% 247.5 ML IV SCH (11:30)
[2024-08-26] MEDS ORDERED: SODI CHLOR IV SCH (11:30)
[2024-08-26] MEDS ORDERED: POTASSIUM CHLORIDE IV SCH (11:30)
[2024-08-26 15:57] LABS: BUN Creatinine Ratio 5.6 (10-20); Calcium 8.5 mg/dl (8.6-10.3); Creatinine Clr Calc Pharmacy 174.6 ml/min; Potassium 3.8 mmol/L (3.5-5.1)
[2024-08-27 06:22] LABS: Basophils # (auto) 0.02 K/uL (0.00-0.20); Basophils % (auto) 0.4 %; Eosinophils # (auto) 0.23 K/uL (0.00-0.50); Eosinophils % (auto) 4.5 %; Hematocrit (blood only) 31.8 % (42.0-52.0); Hemoglobin 10.7 g/dl (14.0-18.0); Immature Granulocytes # (auto) 0.03 K/uL (0.01-0.20); Immature Granulocytes % (auto) 0.6 %; Lymphocytes # (auto) 1.72 K/uL (1.20-3.40); Lymphocytes % (auto) 33.6 %; Mean Corpuscular Hemoglobin 29.4 pg (25.0-34.0); Mean Corpuscular Hgb Conc 33.6 g/dL (32.0-36.0); Mean Corpuscular Volume 87.4 fL (80.0-100.0); Monocytes # (auto) 0.33 K/uL (0.11-0.59); Monocytes % (auto) 6.4 %; Neutrophils # (auto) 2.79 K/uL (1.40-6.50); Neutrophils % (auto) 54.5 %; Platelet Count 162 K/uL (130-400); RDW Coefficient of Variation 12.1 % (11.5-14.5); RDW Standard Deviation 39.2 fL (36.4-46.3); Red Blood Count 3.64 M/uL (4.70-6.10); White Blood Count 5.12 K/ul (4.8-10.8)
--- NOTE | 2024-08-27 06:53 | Hospitalist Progress Note ---
Date of Service August 27, 2024 Assessment & Plan (1) Acute pancreatitis: (2) Alcohol abuse: (3) GERD (gastroesophageal reflux disease): (4) Hypertension: (5) Obstructive sleep apnea: (6) Dyslipidemia: Plan This is a 34 y/o M with PMHx of SANJAY (on CPAP), HTN, HLD, Prediabetes, and alcohol abuse who was admitted due to acute pancreatitis. #Acute pancreatitis - Etiology: Likely combination of alcohol and hypertriglyceridemia - Presented with Epigastric pain with radiation to back exacerbated by meals - Vitals: BP moderate elevated to 158/95 - Labs : Lipase : 35 AST 27 ALT 36 ALK phosphatase 36 Total Bili:0.5 T - Ct Abdomen and Pelvis reveals acute proximal pancreatitis; 2mm nonobstructing right kidney stone, large fatty liver and splenomegaly. Plan - Stop Insulin drip . Recheck Triglyceride at 3 PM. - cont home fenofibrate dose of 145 mg daily. Add Gemfibrozil BID on discharge - Discharge to home today. Followup after 1 week with PCP #Alcohol use disorder - States he drinks "a couple times" during the week, and alternates between a 6- pack of beer or half a bottle or a whole bottle of vodka - Last drink was 4 days ago before coming to hospital - Denies hx of withdrawal -Electrolytes WNL - Feels he needs to decrease his EtOH intake, especially given current presentation - Discussed importance of decreasing alcohol intake #Prediabetes - Hgb A1c from 06/2024 was 6.3% - Bsg at time of admission was 277 #HTN - BP: 158/95. Resume home BP meds #SANJAY - Continue CPAP #HLD - Continue home Fenofibrate, Will add Gemfibrozil BID GERD - Continue PPI Admission and Anticipated Discharge Date Admission Date: August 24, 2024 Subjective Overnight events: slept well, no any overnight events Ongoing symptoms: Denies abdominal pain, nausea/vomiting New concerns: No any Review of Systems Review of Systems: As per HPI Physical Exam Constitutional: WD/WN, vitals as above well developed; no acute distress Eyes: PERRL, conjunctivae normal, anicteric sclerae ENMT: external ear and nose normal, oropharynx normal Ears: no hearing impairment Neck: trachea midline, no thyromegaly trachea midline Respiratory: normal respiratory effort, lungs clear to auscultation normal respiratory effort and + respiratory distress; no labored breathing and no retractions Auscultation: lungs clear to auscultation bilaterally Cardiovascular: RRR, no murmur, no edema Rate/Rhythm: regular rate and regular rhythm Chest (Breasts): normal inspection/palpation of breasts Chest: normal inspection of chest Results & Data Results & Data Vital Signs (Past 12 Hours) Vital Signs Temp Pulse Pulse Resp BP Pulse Ox O2 Del Method 08/27/24 04:00 36.8 C 81 17 129/85 98 Room Air 08/27/24 00:45 83 14 98 08/27/24 00:00 36.8 C 84 19 131/83 98 Room Air 08/26/24 22:01 82 08/26/24 20:32 156/92 H 08/26/24 20:14 37.1 C 101 H 18 173/101 H 100 Room Air FiO2 08/27/24 04:00 08/27/24 00:45 21 08/27/24 00:00 08/26/24 22:01 08/26/24 20:32 08/26/24 20:14
[2024-08-27 06:57] LABS: Albumin Level 3.4 gm/dl (3.4-5.0); BUN Creatinine Ratio 4.7 (10-20); Bilirubin,Total 0.4 mg/dl (0.2-1.0); Calcium 8.7 mg/dl (8.6-10.3); Creatinine Clr Calc Pharmacy 182.7 ml/min; Potassium 3.9 mmol/L (3.5-5.1); Total Protein 6.2 gm/dl (6.0-8.3)
[2024-08-27 06:59] LABS: Albumin Globulin Ratio 1.2 (0.9-2); Globulin 2.8 gm/dl (2.5-4.0)
[2024-08-27 08:43] VITALS: O2SAT 100
[2024-08-27 15:36] VITALS: PULSE 86; RESP 20; TEMP 98.6
--- NOTE | 2024-08-27 16:45 | Discharge Summary ---
Date of Service August 27, 2024 Admission HPI Per Admitting Provider Patient is a 34-year-old male with past medical history of hypertension, GERD, hyperlipidemia, SANJAY (on CPAP), prediabetes, and alcohol abuse who comes to the emergency department due to 2 days of persistent abdominal pain. Patient describes pain as intense burning in his epigastric region with radiation to his back, exacerbated by meals, persistent/constant. Associated symptoms include nausea, and states that he had a fever at home (Tmax of 101) and 1 episode of night sweats. Denies having any other associated symptoms such as chest pain, shortness of breath, dyspnea on exertion, palpitations, tachycardia, diarrhea or vomiting, weakness, lightheadedness/dizziness, or any other systemic symptoms. When pain began 2 days ago, since patient noticed that this was exacerbated by oral intake, he has had little to eat if anything and these last 2 days. He has not had a previous episode of pancreatitis, however, he states that he has been having intermittent abdominal pain for a few weeks that resolved spontaneously, but he grew concerned when his abdominal pain that began 2 days ago was not resolving like in previous times. Patient states that he consumes alcoholic beverages " a few times a week" and that he alternates between a sixpack of beer and half or a whole bottle of vodka. The last drink he had was 4 days ago and he denies having any history of withdrawal, but knows that he needs to decrease his intake. He lives in [place] with his grandmother. Labs/Imaging: Leukocytosis of 16 with neutrophilic predominance, hemoglobin of 14.3, platelets of 204. Lactate of 1.9. CMP with mild hyponatremia of 133, creatinine of 0.93 and BUN of 9, blood sugar of 277 (hemoglobin A1c from 06/2024 was 6.3). LFTs unremarkable. Lipase of 61. Pro-Liborio of 0.12. CTAP showing hepatomegaly (length of 31 cm) with changes consistent with fatty liver, splenomegaly (length of 17.5 cm), and changes consistent with acute proximal pancreatitis; no gallstones or biliary duct dilation noted. Medical History: [Reviewed] Medications: [Reviewed] Surgical History: [Reviewed] Family history: [Reviewed] Allergies: [Reviewed] Social History: [Reviewed] Code Status: FULL Admission Exam Per Admitting Provider Constitutional: Patient appears in no acute distress. HENT: Head: Normocephalic and atraumatic. Eyes: EOMI, PERRL Mouth/Throat: Mucous membranes moist. Neck: Trachea midline. Neck supple. Cardiovascular: Tachycardic with regular rhythm. No murmurs, rubs or gallops. Intact distal pulses. Pulmonary/Chest: No respiratory distress. Breath sounds clear and equal bilaterally. No wheezes or rales. No chest wall tenderness to palpation. Abdominal: Abdomen soft, no rebound or guarding. RUQ TTP. Epigastric TTP Musculoskeletal: No edema, tenderness or deformity noted. Skin: Warm and dry. No rash, erythema, pallor or cyanosis Psychiatric: Appropriate mood and affect for situation. Neurological: Alert and keenly responsive. CN II-XII grossly intact, moving all extremities equally and fully. Principal Diagnosis 1. Acute Pancreatitis due to Hypertriglyceridemia Discharge Exam Constitutional WD/WN, vitals as above well developed; no acute distress Eyes PERRL, conjunctivae normal, anicteric sclerae ENMT external ear and nose normal, oropharynx normal Ears: no hearing impairment Neck trachea midline, no thyromegaly trachea midline Respiratory normal respiratory effort, lungs clear to auscultation normal respiratory effort and + respiratory distress; no labored breathing and no retractions Auscultation: lungs clear to auscultation bilaterally Cardiovascular RRR, no murmur, no edema Rate/Rhythm: regular rate and regular rhythm Chest (Breasts) normal inspection/palpation of breasts Chest: normal inspection of chest Discharge Data Allergies Allergy/AdvReac Type Severity Reaction Status Date / Time No Known Allergies Allergy Verified 08/24/24 21:20 Consultations 08/24/24 19:19 ED Decision to Admit Stat Ordered Studies 08/24/24 15:38 CT abd pelvis IV con only Stat Hospital Course (1) Alcohol abuse: (2) Acute pancreatitis: (3) Dyslipidemia: (4) Hypertriglyceridemia: (5) GERD (gastroesophageal reflux disease): (6) Hypertension: (7) Obstructive sleep apnea: Plan This is a 34 y/o M with PMHx of SANJAY (on CPAP), HTN, HLD, Prediabetes, and alcohol abuse who was admitted due to acute pancreatitis. #Acute pancreatitis - Etiology: Likely combination of alcohol and hypertriglyceridemia - Presented with Epigastric pain with radiation to back exacerbated by meals - Vitals: BP moderate elevated to 158/95 - Labs : Lipase : 35 AST 27 ALT 36 ALK phosphatase 36 Total Bili:0.5 T - Ct Abdomen and Pelvis reveals acute proximal pancreatitis; 2mm nonobstructing right kidney stone, large fatty liver and splenomegaly. Plan - Stop Insulin drip . Recheck Triglyceride at 3 PM. Recheck level: 494 - cont home fenofibrate dose of 145 mg daily. Add Gemfibrozil BID on discharge - Discharge to home today. Followup after 1 week with PCP #Alcohol use disorder - States he drinks "a couple times" during the week, and alternates between a 6- pack of beer or half a bottle or a whole bottle of vodka - Last drink was 4 days ago before coming to hospital - Denies hx of withdrawal -Electrolytes WNL - Feels he needs to decrease his EtOH intake, especially given current presentation - Discussed importance of decreasing alcohol intake #Prediabetes - Hgb A1c from 06/2024 was 6.3% - Donot recommend any intervention for now. - Monitor HBA1C after 3 months from recent test. #HTN - BP: 158/95. Resume home BP meds #SANJAY - Continue CPAP #HLD - Continue home Fenofibrate, Will add Gemfibrozil BID GERD - Continue PPI Total Time Total Time Spent Total Time Spent (In Minutes): 50% of patient care. Discharge Plan Discharge Items Patient Disposition: Home - Self-Care Reason For Visit: ABDOMINAL PAIN Discharge Diagnosis: 1. Acute Pancreatitis due to Hypertriglyceridemia Activity: Per Instructions section Non-emergency contact: Primary Care Provider Call non-emergency contact if: you have any medication questions, your symptoms worsen, your pain is not controlled and your pain is worsening Follow-up/Referrals: Hernan De La Cruz DO [Primary Care Provider] - 09/02/24 9:20 am Diet: Heart Healthy Addtl Attending Provider Instructions: You were admitted to the hospital for Acute pancreatitis due to Hypertriglyceridemia . You were treated with Insulin, Fluid and other supportive measures A discharge summary will be sent to your primary care physician to ensure continuity of care. Please bring this discharge summary with you to your next office appointment so that your provider can review it at that time. Medications: Your medication list has been reviewed and reconciled upon discharge to ensure accuracy and continuity of care. An updated list of all your medications is included with your hospital discharge paperwork. -A new medicine called Gemfibrozil 600 mg has been sent to your pharmacy to control your triglycerides level. Take it two times a day as instructed. - Take all rest of your home medicines same as before. Follow up appointments: - Make a follow up appointment with your PCP within the next week. It is very important that you follow up with them shortly after discharge from the hospital. - Keep all of your follow up appointments as already scheduled. If you cannot make an appointment, notify your provider. -Need to check your BMP, Triglycerides and Lipase on Followup with your PCP. CONTACT YOUR PRIMARY CARE PROVIDER if you experience any of the following: Difficulty following your treatment plan - Difficulty taking any of your medications CALL 911 OR GO TO THE EMERGENCY DEPARTMENT if you experience any of the following: - - Sudden, severe abdominal pain or nausea/ vomiting Pending Studies at Discharge: No Stand-Alone Forms: My [facility] [employer], Smoking Cessation Medications and DC Order Prescriptions: New gemfibrozil 600 mg tablet 600 mg PO BID Qty: 60 1RF Continued lisinopril 20 mg tablet 20 mg PO DAILY Qty: 90 3RF fenofibrate nanocrystallized 145 mg tablet 145 mg PO DAILY Qty: 90 3RF omeprazole 40 mg capsule,delayed release(DR/EC) 40 mg PO DAILY Qty: 90 3RF triamcinolone acetonide 0.025 % ointment 1 applic topical BID Qty: 15 1RF Discharge Orders: Discharge Order (Routine); Ordered 08/27/24 Ordered By: Liam Alcaraz Admission Data Admit Date/Time: 08/24/24 19:58 Attending Provider: Eber Vargas Admit Provider: Lynn Carmen Primary Care Provider: Hernan De La Cruz Other Providers: Leda Leong Other Interventions: Discharge Summary Assessment (RN) Last Done: 08/27/24 16:52 Supervising Physician Co-Signing Physician Notes Attending attestation Pt seen and examined in concert with Dr. Alcaraz. In agreement with the documented findings as noted in the resident documentation with any exceptions or additions as noted here. Resolution of epigastric symptoms and nausea, tolerating diet well. Reviewed d/c etOH use (which he describes as binges and declines referral), d/c vaping ('alre kaci quit for the last few days anyway'), and working on dietary intake. On examination, S1/S2 nl RRR no MCG. CTAB. Abd NT/ND BS+ve Acute pancreatitis in the setting of hypertriglyceridemia - improved following insulin drip. Agree w/ restart fenofibrate and add BID gemfibrozil. Counseling re: extensive lifestyle modification and close follow up w/ PCP. Else see resident documentation as noted. Total attending physician time spent with this patient's care on the day of discharge: 35 minutes. Resident Activity Tracking Resident Involvement: Resident Care Provided Care Provided: Adult Hospital Medicine
[2024-08-27 16:53] VITALS: BP 144/100
== END 2024-08-27 17:09 | disposition home or self-care (01) | DRG 439 ==
LOC: ED 15:30 → 2E 19:58 → SUATTDRO 19:58 → 2E 20:40